=== PATIENT | female | born 1955 | race Caucasian/White ===

== ENCOUNTER 2022-02-08 07:05 | Outpatient (CLI) | payer BC, SELFPAY | END 2022-02-08 07:06 | disposition home or self-care (01) | PROVIDERS: PCP Family Medicine; Visit Provider Internal Medicine | DX: Z12.11 Encounter for screening for malignant neoplasm of colon (principal) | CPT/HCPCS: 45378; 99153; J2250; J3010 ==

== ENCOUNTER 2022-04-16 13:21 | Outpatient (CLI) | payer BC, SELFPAY ==
--- NOTE | 2022-04-16 13:20 | CRLHL7_ITS ---
For Patients: As a result of the Cures Act, medical imaging exams and procedure reports are released immediately into your electronic medical record. You may view this report before your referring provider. If you have questions, please contact your health care provider. BILATERAL SCREENING MAMMOGRAM WITH COMPUTER-AIDED DETECTION AND TOMOSYNTHESIS TECHNIQUE: CC and MLO views were obtained. These mammographic images have been obtained using full-field digital technique. These mammographic images were interpreted with the benefit of computer-aided detection. Breast Tomosynthesis was used in this interpretation. COMPARISON FILM: No priors available ??? [facility] over 10 years ago. FINDINGS: The breasts are heterogeneously dense, which may obscure small masses IMPRESSION: There is no radiographic evidence for malignancy. ASSESSMENT: BI-RADS Category 2: Benign RECOMMENDATION: Routine screening mammogram in 1 year. A lay language report of this examination will be provided to the patient. Hubert Spencer M.D. Diagnostic/Nuclear Medicine Radiologist [email or web address] STEFAN/Dictated by: Hubert Spencer MD @ 04/17/2022 8:30:00 AM (Electronically Signed)
== END 2022-04-16 13:22 | disposition home or self-care (01) ==
PROVIDERS: PCP Family Medicine; Visit Provider Internal Medicine
DX: Z12.31 Encounter for screening mammogram for malignant neoplasm of breast (principal); R92.2 Inconclusive mammogram
CPT/HCPCS: 77063; 77067

== ENCOUNTER 2024-02-02 03:12 | Emergency (ER) | payer BC, SELFPAY ==
[2024-02-02 03:31] VITALS: BP 145/82; PULSE 73; RESP 16; TEMP 36.4; O2SAT 99; BMI 27.4
--- NOTE | 2024-02-02 03:36 | CRLHL7_ITS ---
For Patients: As a result of the Century Cures Act, medical imaging exams and procedure reports are released immediately into your electronic medical record. You may view this report before your referring provider. If you have questions, please contact your health care provider. INDICATION: : Fall on the outstretched hand, injury TECHNIQUE: Three views left wrist COMPARISON: None FINDINGS: Comminuted intra-articular left distal radial fracture. The articular surface gap is 0.6 cm. Dorsal dislocation of the central dorsal portion of the radius. Normal radioulnar and radiocarpal alignment. Relatively mild osteoarthritis. No focally destructive bone lesions. Soft tissue swelling around the wrist. IMPRESSION: Comminuted intra-articular left distal radial fracture. Dictated by Ana Ramirez MD @ 02/02/2024 4:02:21 AM (Electronically Signed)
[2024-02-02 05:57] VITALS: BP 135/68; PULSE 68; RESP 16; O2SAT 97
[2024-02-02 06:26] VITALS: BP 135/68; PULSE 68
--- NOTE | 2024-02-02 06:51 | ED_ITS ---
HPI - General Adult General Date Seen: 02/02/24 Chief complaint: Extremity Pain/Injury, Upper Stated complaint: left wrist injury from fall Time Seen by Provider: 02/02/24 04:42 Source: patient Mode of arrival: ambulatory Limitations: no limitations History of Present Illness HPI narrative: Patient is a 68-year-old woman who tripped and fell a couple of hours prior to presentation. She is left-handed, she landed on outstretched left hand and complains of pain in the wrist. She does not have any numbness or loss of function. Denies hitting her head, no neck or back pain, denies other injuries. She is not anticoagulated. Related Data Home Medications ?Medication ?Instructions ?Recorded ?Confirmed No Known Home Medications 09/19/23 09/19/23 Allergies Allergy/AdvReac Type Severity Reaction Status Date / Time No Known Drug Allergies Allergy Verified 09/19/23 15:17 Review of Systems Status of ROS: Reports: 10 or more systems reviewed and unremarkable except as noted in History and below PFSH PFS Surgical History History of wrist fracture ?Z87.81 - Personal history of (healed) traumatic fracture (ICD-10) Social History Smoking Status: Never smoker Do you use any of these nicotine containing products: None How often do you have a drink containing alcohol: never AUDIT-C Alcohol total score: 0 Non-prescribed substance use: denies use Exam Narrative: Exam Narrative: Vital signs reviewed In general, alert, well-appearing woman. Extremities: Examination of the left upper extremity shows swelling and tenderness of the wrist, no tenderness of the elbow or forearm otherwise. Distal CMS is intact. Skin: Warm and dry, intact over the injured area. Const: Vital Signs, click to edit/add: Vital Signs - 24 hr 02/02/24 03:31 02/02/24 05:57 02/02/24 06:26 Temperature 97.6 F Pulse Rate [Pulse Oximeter] 73 68 68 Respiratory Rate 16 16 Blood Pressure [Ri ght Upper Arm] 145/82 H 135/68 135/68 Pulse Oximetry 99 97 Oxygen Delivery Me thod Room Air Room Air Documenting provider has reviewed patient's vital signs: yes Course Course ED Course: X-rays of the left wrist by my review show a comminuted and impacted fracture, radiology read as follows:FINDINGS: Comminuted intra-articular left distal radial fracture. The articular surface g ap is 0.6 cm. Dorsal dislocation of the central dorsal portion of the radius. Normal radioulnar and radiocarpal alignment. Relatively mild osteoarthritis. No focally destructive bone lesions. Soft tissue swelling around the wrist. IMPRESSION: Comminuted intra-articular left distal radial fracture. In looking at the x-rays, she does not have significant angulation at the fracture site although she does have some displacement of the dorsal radial fragment. I was not confident that I would be able to significantly improve this with reduction, and therefore I a did not perform sedation to reduce this. I did do a hematoma block using 5 mL of lidocaine, placed her in finger traps with weight to distract the fragments a little bit and try to bring this out to better length. I do think this will be a surgical fracture, I have reviewed this with her, she will need to see orthopedics and we made her an appointment in the next couple of days. I placed a sugar-tong splint using Ortho Glass and Mukul wraps. She tolerated this well, is comfortable, does not feel she will need anything than ibuprofen for pain. Vital Signs Vital signs: Initial Vital Signs Temperature 97.6 F 02/02/24 03:31 Temperature Source Temporal Artery Scan 02/02/24 03:31 Pulse Rate 73 02/02/24 03:31 Respiratory Rate 16 02/02/24 03:31 Blood Pressure 145/82 H 02/02/24 03:31 Blood Pressure Mean 103 02/02/24 03:31 Blood Pressure Position Sitting 02/02/24 03:31 Pulse Oximetry 99 02/02/24 03:31 Oxygen Delivery Method Room Air 02/02/24 03:31 Vital Signs Temperature 97.6 F 02/02/24 03:31 Pulse Rate 73 02/02/24 03:31 Respiratory Rate 16 02/02/24 03:31 Blood Pressure 145/82 H 02/02/24 03:31 Pulse Oximetry 99 02/02/24 03:31 Oxygen Delivery Method Room Air 02/02/24 03:31 Temperature 97.6 F 02/02/24 03:31 Pulse Rate 68 02/02/24 06:26 Respiratory Rate 16 02/02/24 05:57 Blood Pressure 135/68 02/02/24 06:26 Pulse Oximetry 97 02/02/24 05:57 Oxygen Delivery Method Room Air 02/02/24 05:57 Discharge Plan Discharge Clinical Impression: Fracture of left wrist Patient Disposition: Home, Self-Care Condition: Improved Instructions: Wrist Fracture in Adults (ED) Additional Instructions: Orthopedic follow-up as scheduled. Sling and splint until follow-up. Ibuprofen and/or Tylenol as needed for pain. Prescriptions: No Action No Known Home Medications Follow Up/Referrals: Coleman Gomez MD [Primary Care Provider] - Stand Alone Forms: [employer] Info Instructions
== END 2024-02-02 07:26 | disposition home or self-care (01) ==
PROVIDERS: Emergency Provider Emergency Medicine; PCP Family Medicine
DX: S52.572A Other intraarticular fracture of lower end of left radius, initial encounter for closed fracture (principal); W01.0XXA Fall on same level from slipping, tripping and stumbling without subsequent striking against object, initial encounter
CPT/HCPCS: 73110; 99283; 99284

== ENCOUNTER 2024-02-11 08:02 | Day surgery (SDC) | payer MEDICARE, SELFPAY ==
[2024-02-11] VITALS (11 sets, daily range): BP systolic 91–156; BP diastolic 40–77; PULSE 47–66; RESP 14–16; TEMP 36.2; O2SAT 93–99; BMI 26.9
--- OUTSIDE RECORDS SUMMARY | 2024-02-11 08:04 | XMS_ITS | Encounter Summary ---
Author Organization [facility] Address [address], [place] [address] Care Team Providers Care Extractor Plant Operator Name Role Phone Toni Natarajan MD Primary Care Provider [phone]- [phone] Encounter Details Date Type Department Care Team (Late Contact Info) Description 04/02/2013 Correspondence None No Primary/Referring, Phy ZOSTER VACCINE PAW Social History Tobacco Use Types Packs/Day Years Used Date Smoking Tobacco: Never Smokeless Tobacco: Never Alcohol Use Standard Drinks/Week Comments Yes 2.5 (1 standard drink = 0.6 oz p ure alcohol) wine a few times a week Sex and Gender Information Value Date Recorded Sex Assigned at Not on file Gender Identity Not on file Sexual Orientation Not on file documented as of this encounter Progress Notes * No Primary/Referring, Phy - 04/02/2013 12:00 AM CDT ATION AGENT documented in this encounter Plan of Treatment Upcoming Encounters Date Type Department Care Team (Late Contact Info) Description 02/17/2024 3:50 PM CDT Appointment [facility] [place] [address] [place] [address] Kezia, Joan Doss, [facility] [address] [place] [address] documented as of this encounter Visit Diagnoses Not on filedocumented in this encounter Care Teams Extractor Plant Operator Relationship Specialty Start Date End Date Toni Natarajan MD [address] [place] [address] PCP - General 01/30/10 documented as of this encounter
--- OUTSIDE RECORDS SUMMARY | 2024-02-11 08:04 | XMS_ITS | Encounter Summary ---
Author Organization [facility] Address [address] [place] [address] Care Team Providers Care Repairer Shoe Sticks Name Role Phone Toni Natarajan MD Primary Care Provider +1- [phone] Reason for Visit * Reason Comments RELEASE OF RECORDS Encounter Details Date Type Department Care Team (Late Contact Info) Description 11/05/2023 Telephone [facility] [address] [place] [address] Unassigned, Provider [address] [place] [address] RELEASE OF RECORDS Social History Tobacco Use Types Packs/Day Years [...] on file documented as of this encounter Nursing Notes * Ana Cloud - 11/05/2023 3:26 PM CDT JOAO emailed in by [facility] on behalf of patient to release dental x-rays. X-rays sent via email on 11/05/23. documented in this encounter Plan of Treatment Upcoming Encounters Date Type Department Care Team (Late Contact Info) Description 02/17/2024 3:50 PM CDT Appointment [facility] [place] [address] [place] [address] Kezia, Joan Doss, [facility] [address] [place] [address] documented as of this encounter Visit Diagnoses Not on filedocumented in this encounter Care Teams Repairer Shoe Sticks Relationship Specialty Start Date End Date Toni Natarajan MD [address] [place] [address] PCP - General 01/30/10 documented as of this encounter
--- OUTSIDE RECORDS SUMMARY | 2024-02-11 08:04 | XMS_ITS | Encounter Summary ---
Author Organization [facility] Address [address], [place] [address] Care Team Providers Care Auto Repair Shop Manager Name Role Phone Toni Natarajan MD Primary Care Provider +1- [phone] Encounter Details Date Type Department Care Team (Latest Contact Info) Description 03/17/1997 Orders Only Dunia Greenberg MD Social History Tobacco Use Types Packs/Day Years Used Date Smoking Tobacco: Never Assessed Sex and Gender Information Value Date Recorded Sex Assigned at Not on file Gender Identity Not on file Sexual Orientation Not on file documented as of this encounter Plan of Treatment Upcoming Encounters Date Type Department Care Team (Late st Contact Info) Description 02/17/2024 3:50 PM CDT Appointment [facility] [place] [address] [place] [address] Kezia, Joan Doss, [facility] [address] [place] [address] documented as of this encounter Visit Diagnoses Not on filedocumented in this encounter Care Teams Auto Repair Shop Manager Relationship Specialty Start Date End Date Toni Natarajan MD [address] [place] [address] PCP - General 01/30/10 documented as of this encounter
--- OUTSIDE RECORDS SUMMARY | 2024-02-11 08:04 | XMS_ITS | Encounter Summary ---
Author Organization [facility] Address [address], [place] [address] Care Team Providers Care Safety Engineer Name Role Phone Toni Natarajan MD Primary Care Provider +1- [phone] Encounter Details Date Type Department Care Team (Late Contact Info) Description 05/19/2013 Consent for Procedure/Treatme [facility] Department INFORMED CONSENT RECORD Social History Tobacco Use Types Packs/Day Years [...] as of this encounter Progress Notes * [facility], PROVIDER - 05/19/2013 12:00 AM CST K LOADER AND UNLOADER documented in this encounter Plan of Treatment Upcoming Encounters Date Type Department Care Team (Late Contact Info) Description 02/17/2024 3:50 PM CDT Appointment [facility] [place] [address] [place] [address] Joan Mast, [facility] [address] [place] [address] documented as of this encounter Visit Diagnoses Not on filedocumented in this encounter Care Teams Safety Engineer Relationship Specialty Start Date End Date Toni Natarajan MD [address] [place] [address] PCP - General 01/30/10 documented as of this encounter
--- OUTSIDE RECORDS SUMMARY | 2024-02-11 08:04 | XMS_ITS | Clinical Summary ---
Author Organization [facility] Address [address], [place] [address] Care Team Providers Care Gas Well Drilling Manager Name Role Phone Toni Natarajan MD Primary Care Provider [phone]- [phone] Source Comments You are receiving this document as you are listed as the primary care provider,follow-up provider, or the patient has been referred to you for consultation.This is in compliance with the Medicare and[facility] EHR Incentive Program,which states Providers who transition their patient to another setting of careor provider of care or refers their patient to another provider of care shouldprovide summary care record for each transition of care or referral. [employer] Allergies No known active allergies Medications Medication Sig Dispensed Refills Start Date End Date Status Lactase 250 MGIndications:Lacto se intolerance Take 250 mg by mouth three times a day with meals. 60 Cap 11 04/02/2013 Active acetaminophen (TYLENOL) 500 MG tablet Take 1 Tab by mouth every 4 hours as needed for Pain (Mild Pain). Maximum acetaminophen dose is 4000 mg in 24 hours 100 Tab 11 07/23/2017 Active Additional Information Patient not taking.Reported on 10/14/2017 ibuprofen (MOTRIN) 200 MG tablet Take 2 Tabs by mouth every 6 hours as needed for Pain (Mild Pain). This may be safely mixed with the prescription pain medications (oxycodone, hydrocodone or tramadol.)?? This may also be safely mixed with acetaminophen. 100 Tab 07/23/2017 Active Additional Information Patient not taking.Reported on 11/19/2022 oxyCODONE (ROXICODONE) 5 MG immediate release tablet Take 1-2 Tabs by mouth every 4 hours as needed for Pain (Severe Pain). 20 Tab 07/23/2017 Active Additional Information Patient not taking.Reported on 10/14/2017 Ascorbic Acid (VITAMIN C OR) Active VITAMIN B COMPLEX-C OR Active CALCIUM-VITAMIN D OR Active Active Problems No known active problems Immunizations Name Administration Dates Next Due Flu Vac (3+ yrs) 04/24/2011,04/24/2005 HepA, Unspecified Formulation 08/15/1998 HepB Adult (Engerix-B, 20+ y rs, 3 dose series) 07/04/1999,12/28/1998,11/27/1998 Influenza IIV4 (Quadrivalent ) 0.5mL (82594) 04/02/2013 Td 03/16/1997,02/06/1974 Tdap 09/08/2008 Varicella 07/10/1999(Deferred: Immune by Bonilla myrick) Zoster (Zostavax) 04/02/2013 Family History Medical History Relation Name Comments Cataract Father Cancer, Breast Mother Cataract Mother Emphysema Mother Macular Degeneration Mother Cerebrovascular Disease Maternal Grandmother cva and thyroid problems Cerebrovascular Disease Other mat aunt 60 Macular Degeneration Paternal Aunt Cataract Sister Glaucoma Negative Family History Relation Name Status Comments Father (Age 84) MVA pedest stephan Mother (Age 78) Maternal Grandmother Other Paternal Aunt Sister Social History Tobacco Use Types Packs/Day Years Used Date Smoking Tobacco: Never Smokeless Tobacco: Never Alcohol Use Standard Drinks/Week Comments Yes 2.5 (1 standard drink = 0.6 oz p ure alcohol) wine a few times a week Sex and Gender Information Value Date Recorded Sex Assigned at Not on file Gender Identity Not on file Sexual Orientation Not on file Last Filed Vital Signs Vital Sign Reading Time Taken Comments Blood Pressure 127/76 08/28/2018 11:53 AM CDT Pulse 74 07/08/2023 11:07 AM ROCK LATHER Temperature 36.1 ??C (97 ??F) 07/23/2017 11:30 AM ROCK LATHER Respiratory Rate 20 07/23/2017 11:45 AM ROCK LATHER Oxygen Saturation 99% 07/23/2017 11:45 AM ROCK LATHER Inhaled Oxygen Concentration - - Weight 75.3 kg (166 lb) 09/23/2017 3:07 PM CDT Height 167.6 cm (5' 6) 09/23/2017 3:07 PM CDT Body Mass Index 26.79 09/23/2017 3:07 PM CDT Plan of Treatment Upcoming Encounters Date Type Department Care Team (Late st Contact Info) Description 02/17/2024 3:50 PM CDT Appointment [facility] [place] [address] [place] [address] Kezia, Joan Doss, [facility] [address] [place] [address] Health Maintenance Due Date Last Done Comments Hep C Screening (Preventive Services) 1955 MTM Covered 1955 HepA (2 of 2 - Risk 2-dose series) 02/15/1999 08/15/1998 Adult Preventive Visit 04/24/2012 1, 09/08/2008, 05/08/2005, Additional history exists Zoster/Shingles (2 of 3) 05/28/2013 04/02/2013 Mammogram 04/02/2014 04/02/2013, 04/09, 03/24/2011 (Completed), Additional history exists Cholesterol 04/06/2018 04/06/2013, 04/09, 05/10/2005, Additional history exists DTaP/Tdap/Td (3 - Tdap) 09/08/2018 09/09/19 09, 03/16/1997, 02/06/1974 Colonoscopy 05/19/2020 05/19/2013, 06/09, 06/26/2006 (Historical Completion) Pneumococcal 65+ Yrs (1 - PCV) 02/11/2021 COVID-19 Vaccine (2 - season) 2024 09/18/2020 Influenza (#1) 2024 04/30/2016, 03/10, 04/24/2011, Additional history exists HepB Completed 07/04/1999, 12/08, 11/27/1998 Dexa Completed 09/23/2017 Hib Aged Out No longer eligi ble based on patient's age to complete this topic IPV (Polio) Aged Out No longer eligi ble based on patient's age to complete this topic MCV4 Aged Out No longer eligi ble based on patient's age to complete this topic Medical Devices Implanted Type Area Applications Support Lead Device Identifier Shelf Expiration Date Model / Serial / Lot Plt Dvr Anatomic Narw Shtrt - [id number] Implanted:Qty: 1 on 07/23/2017 by Pablo Siegel MD at [facility] Right: [employer] - Trauma [id number] / 0 / 0 Scr Rafael 3.5x12 [id number] - [id number] Implanted:Qty: 1 on 07/23/2017 by Pablo Siegel MD at [facility] Right: [employer] - Trauma [id number] / 0 / 0 Scr Rafael 3.5x12 [id number] - [id number] Implanted:Qty: 1 on 07/23/2017 by Pablo Siegel MD at [facility] Right: [employer] - Trauma [id number] / 0 / 0 Peg Smooth 2.0x20 - [id number] Implanted:Qty: 1 on 07/23/2017 by Pablo Siegel MD at [facility] Right: [employer] - Trauma [id number] / 0 / 0 Peg Smooth 2.0x18 - [id number] Implanted:Qty: 1 on 07/23/2017 by Pablo Siegel MD at [facility] Right: [employer] - Trauma [id number] / 0 / 0 Peg Smooth 2.0x20 - [id number] Implanted:Qty: 1 on 07/23/2017 by Pablo Siegel MD at [facility] [employer] Right: [employer] - Trauma [id number] / 0 / 0 Peg Smooth 2.0x20 - [id number] Implanted:Qty: 1 on 07/23/2017 by Pablo Siegel MD at [facility] Right: [employer] - Trauma [id number] / 0 / 0 Peg Smooth 2.0x18 - [id number] Implanted:Qty: 1 on 07/23/2017 by Pablo Siegel MD at [facility] Right: [employer] - Trauma [id number] / 0 / 0 Peg Smooth 2.0x20 - [id number] Implanted:Qty: 1 on 07/23/2017 by Pablo Siegel MD at [facility] Right: [employer] - Trauma [id number] / 0 / 0 Scr Rafael 3.5x12 [id number] - [id number] Implanted:Qty: 1 on 07/23/2017 by Pablo Siegel MD at [facility] [employer] Right: [employer] - Trauma [id number] / 0 / 0 Procedures Procedure Name Priority Date/Time Associated Diagnosis Comments DXA BONE DENSITY SPINE/HIP Routine 09/23/2017 2:52 PM CDT Status post musculoskeletal system surgery Postop check COLONOSCOPY Routine 05/19/2013 11:21 AM ROCK LATHER Screen for colon cancer LIPID PANEL & DIRECT LDL (IF NEEDED) Routine 04/06/2013 8:15 AM CDT Preventative health care MM MAMMOGRAM SCREENING BILAT W CAD Routine 04/02/2013 11:02 AM CDT from Last 3 Months or Most Recently Relevant to Health Maintenance Results * DEXA Bone Density Spine/Hip (09/23/2017 2:52 PM CDT) Anatomical Region Laterality Modality Lower Extremity, Spine, Hip, L-Spine Other Narrative 09/25/2017 9:59 PM CDT CLINIC DXA REPORT Patient Name: ??Amelia Irwin Lincoln: ??Ksenia Foster MD Densitometer: ??Hologic Discovery A (S/N [id number]) [facility] BONE5 OSTEOPOROSIS RISK FACTORS FROM PATIENT QUESTIONNAIRE: ?? The patient is a 62 y.o.female: Estrogen deficiency since menopause about 16 years ago, possibly inadequate vitamin D intake, and a fractured wrist at age 62. BONE MINERAL DENSITY: Lumbar Spine Vertebrae Included: L1;L2;L3;L4 Bone Mineral Density (gm/cm2): 0.828 T-Score: -2 Z-Score: -0.5 Total Hip Bone Mineral Density (gm/cm2): 0.796 (left hip) T-Score: -1.2 Z-Score: -0.2 Femoral Neck Bone Mineral Density (gm/cm2): 0.706 T-Score: -1.3 Z-Score: 0.1 FRAX 10 year probability major osteoporotic fracture: 13% 10 year probability hip fracture: 1.1% Fracture risk is based on bone density, age, ethnicity, and other BMD-independent risk factors noted from the questionnaire and the FRAX score, if available. ??See different fracture risk categories below under definitions. ASSESSMENT: Moderate low bone density based on lowest T score which is at the lumbar spine. ??Fragility fracture risk is mildly increased. . RECOMMENDATIONS: 1. ??Optimize daily intake of calcium and vitamin D. 2. ??Consider repeating a bone density in 3 years Definitions (T-Score = Standard deviations above/below mean peak adult) (Z-Score = Standard deviations above/below mean age/sex-matched peers) ISCD Standards: ??For a more accurate fracture risk assessment, reference data is used for all ethnic groups and the 1/3 region is reported for the forearm. WHO DEFINITIONS: Normal BMD: T-score ? -1.0 Osteopenia: T-score between -1.0 and -2.5 Osteoporosis: T-score ? -2.5 FRAX Score : ??The FRAX?? algorithms give the 10-year probability of fracture. The output is a 10-year probability of hip fracture and the 10-year probability of a major osteoporotic fracture (clinical spine, forearm, hip or shoulder fracture). ?? The FRAX score takes into account the bone density, but also age, gender, weight, height, previous fracture, parental hip fracture, smoking status, glucocorticoid intake, history of RA, secondary osteoporosis, and high alcohol intake in determining fracture risk in patients with osteopenia and osteoporosis. FRAX and Fracture Risk Categories in terms of major osteoporotic fracture risk (clinical spine, forearm, hip, or shoulder): < 10% ?= ?low fracture risk ? 10% and <15% ?= ?mildly increased fracture risk ? 15% and <20% ?= ?moderately increased fracture risk ? 20% and <30% ?= ?high fracture risk ? 30% ?= ?very high fracture risk A clinician may consider FDA-approved medical therapies in postmenopausal women and men aged 50 years and older, if one or more of the following is present (clinical correlation required and therapy may not always be indicated): 1. ??The patient has a hip or vertebral (clinical or morphometric) fracture. 2. ??T-score ? -2.5 at the femoral neck, hip, or spine after appropriate evaluation to exclude secondary causes. 3. ??Low bone mass (T-score between -1.0 and -2.5 at the femoral neck, hip or spine) and a 10-year probability of a hip fracture ? 3% or a 10-year probability of a major osteoporosis-related fracture ? 20% based on the FRAX scores. 4. ??Clinicians judgment and/or patient preferences may result in a decision to patients with 10-year fracture probabilities above or below these levels. Pablo Siegel MD RAD DEXA * COLONOSCOPY [[id number]] (05/19/2013 11:21 AM ROCK LATHER) 05/19/2013 11:2 1 AM ROCK [facility]ER Narrative GI ([facility]) - 05/19/2013 12:25 PM ROCK LATHER Indications: ? Screening for colorectal malignant neoplasm Providers: ? Janusz Cortes MD, Cady Landeros RN Referring MD: ?Umu Neal MD Medicines: ? Fentanyl IV 100 mcgs, Versed/Midazolam IV 4 mgs Complications: ? No immediate complications. Procedure: ? Pre-Anesthesia Assessment: ? - Prior to the procedure, a History and Physical was ? performed, and patient medications and allergies were ? reviewed. The risks and benefits of the procedure and ? the sedation options and risks were discussed with ? the patient. All questions were answered and informed ? consent was obtained. Patient identification and ? proposed procedure were verified by the physician and ? the nurse in the pre-procedure area in the procedure ? room in the endoscopy suite. Mental Status ? Examination: alert and oriented. Airway Examination: ? normal oropharyngeal airway and neck mobility. ? Respiratory Examination: clear to auscultation. CV ? Examination: regular rate and rhythm. Prophylactic ? Antibiotics: The patient does not require ? prophylactic antibiotics. Prior Anticoagulants: The ? patient has taken no previous anticoagulant or ? antiplatelet agents. ASA Grade Assessment: I - A ? normal, healthy patient. After reviewing the risks ? and benefits, the patient was deemed in satisfactory ? condition to undergo the procedure. The anesthesia ? plan was to use moderate sedation / analgesia ? (conscious sedation). Immediately prior to ? administration of medications, the patient was ? re-assessed for adequacy to receive sedatives. The ? physical status of the patient was re-assessed after ? the procedure. ? After I obtained informed consent, the scope was ? passed under direct vision. Prior to sedation, ? patient identity and procedure was reverified. ? Throughout the procedure, the patient's blood ? pressure, pulse, and oxygen saturations were ? monitored continuously. The Colonoscope was ? introduced through the anus and advanced to the ? cecum, identified by appendiceal orifice & ileocecal ? valve. The colonoscopy was technically difficult and ? complex due to significant looping and a tortuous ? colon. Successful completion of the procedure was ? aided by increasing the dose of sedation medication, ? changing the patient to a prone position and using ? manual pressure. The patient tolerated the procedure ? well. The quality of the bowel preparation was fair. Findings: ? A sessile polyp was found in the rectum. The polyp was 4 mm in size. ? The polyp was removed with a cold biopsy forceps. Resection and ? retrieval were complete. ? Internal hemorrhoids were found during retroflexion and were mild. Impression: ?- One 4 mm polyp in the rectum. Resected and ? retrieved. ? - Internal hemorrhoids. Recommendation: ?- Await pathology results. ? - If the pathology report reveals adenomatous tissue, ? then repeat the colonoscopy for surveillance in 5 ? years. Otherwise in 7 years. ? - Return to primary care physician. ? - Prep with 2 days of clear liquid diet & golytely ? (split prep) for the next colonoscopy. Procedure Code(s): ?? --- Professional --- ? 24854, Colonoscopy, flexible, proximal to splenic ? flexure; with biopsy, single or multiple Diagnosis Code(s): ?? --- Professional --- ? V76.51, Special screening for malignant neoplasms of ? colon ? 569.0, Anal and rectal polyp ? 455.0, Internal hemorrhoids without mention of ? complication CPT (R) 2012 [employer]. All Rights Reserved. The codes documented in this report are preliminary and upon insurance coder review may be revised to meet current compliance requirements. Attending Participation: Janusz Cortes MD 05/19/2013 12:24 PM This report has been signed electronically. Number of Addenda: 0 Note Initiated On: 05/19/2013 11:21 AM Procedure Note Janusz Cortes MD - 05/19/2013 Indications: Screening for colorectal malignant neoplasm Providers: Janusz Cortes MD, Cady Landeros RN Referring MD: Umu Neal MD Medicines: Fentanyl IV 100 mcgs, Versed/Midazolam IV 4 mgs Complications: No immediate complications. Procedure: Pre-Anesthesia Assessment: - Prior to the procedure, a History and Physical was performed, and patient medications and allergies were reviewed. The risks and benefits of the procedure and the sedation options and risks were discussed with the patient. All questions were answered and informed consent was obtained. Patient identification and proposed procedure were verified by the physician and the nurse in the pre-procedure area in the procedure room in the endoscopy suite. Mental Status Examination: alert and oriented. Airway Examination: normal oropharyngeal airway and neck mobility. Respiratory Examination: clear to auscultation. CV Examination: regular rate and rhythm. Prophylactic Antibiotics: The patient does not require prophylactic antibiotics. Prior Anticoagulants: The patient has taken no previous anticoagulant or antiplatelet agents. ASA Grade Assessment: I - A normal, healthy patient. After reviewing the risks and benefits, the patient was deemed in satisfactory condition to undergo the procedure. The anesthesia plan was to use moderate sedation / analgesia (conscious sedation). Immediately prior to administration of medications, the patient was re-assessed for adequacy to receive sedatives. The physical status of the patient was re-assessed after the procedure. After I obtained informed consent, the scope was passed under direct vision. Prior to sedation, patient identity and procedure was reverified. Throughout the procedure, the patient's blood pressure, pulse, and oxygen saturations were monitored continuously. The Colonoscope was introduced through the anus and advanced to the cecum, identified by appendiceal orifice & ileocecal valve. The colonoscopy was technically difficult and complex due to significant looping and a tortuous colon. Successful completion of the procedure was aided by increasing the dose of sedation medication, changing the patient to a prone position and using manual pressure. The patient tolerated the procedure well. The quality of the bowel preparation wasfair. Findings: A sessile polyp was found in the rectum. The polyp was 4 mm in size. The polyp was removed with a cold biopsy forceps. Resection and retrieval were complete. Internal hemorrhoids were found during retroflexion and were mild. Impression: - One 4 mm polyp in the rectum. Resected and retrieved. - Internal hemorrhoids. Recommendation: - Await pathology results. - If the pathology report reveals adenomatous tissue, then repeat the colonoscopy for surveillance in 5 years. Otherwise in 7 years. - Return to primary care physician. - Prep with 2 days of clear liquid diet & golytely (split prep) for the next colonoscopy. Procedure Code(s): --- Professional --- 21343, Colonoscopy, flexible, proximal to splenic flexure; with biopsy, single or multiple Diagnosis Code(s): --- Professional --- V76.51, Special screening for malignant neoplasms of colon 569.0, Anal and rectal polyp 455.0, Internal hemorrhoids without mention of complication CPT (R) 2012 [employer]. All Rights Reserved. The codes documented in this report are preliminary and upon insurance coder review may be revised to meet current compliance requirements. Attending Participation: Janusz Cortes MD 05/19/2013 12:24 PM This report has been signed electronically. Number of Addenda: 0 Note Initiated On: 05/19/2013 11:21 AM Janusz Cortes MD [facility] [place], [place] * LIPID PANEL AND DIRECT LDL(IF NEEDED) (04/06/2013 8:15 AM CDT) Hours Fasting 12 hours [facility] Cholesterol 194 0 - 199 mg/dl [facility] Triglyceride 63 0 - 149 mg/dl [facility] HDL 57 >40 mg/dl [facility] LDL, Calc. 124 0 - 129 mg/dl [facility] Non HDL Chol, Calc 137 mg/dl [facility] 04/06/2013 8:15 AM CDT 04/06/2013 8:22 AM CDT Narrative [facility] - 04/06/2013 1:03 PM CDT Performed at [facility], [address] [place] [address] ??[id number] Umu Neal MD LAB_1 [facility] [phone] * MAMMOGRAM SCREENING BILATERAL (04/02/2013 11:02 AM CDT) Anatomical Region Laterality Modality Breast Bilateral Mammography Narrative 04/05/2013 2:16 PM CDT BILATERAL FULL FIELD DIGITAL SCREENING MAMMOGRAM Performed on 04/02/2013 Comparison: MAMMOGRAM SCREENING W/CAD BILAT 04/24/11 and MAMMOGRAM SCREENING W/CAD BILAT 02/08/10. Findings: The breasts have scattered fibroglandular densities. There is no radiographic evidence of malignancy.This study was evaluated with the assistance of Computer-Aided Detection. ??Repeat routine screening mammogram in one year is recommended. ACR BI-RADS Category 1: Negative Procedure Note Esme Sosa MD - 04/05/2013 BILATERAL FULL FIELD DIGITAL SCREENING MAMMOGRAM Performed on 04/02/2013 Comparison: MAMMOGRAM SCREENING W/CAD BILAT 04/24/11 and MAMMOGRAMSCREENING W/CAD BILAT 02/08/10. Findings: The breasts have scattered fibroglandular densities. There is noradiographic evidence of malignancy.This study was evaluated with theassistance of Computer-Aided Detection. Repeat routine screeningmammogram in one year is recommended. ACR BI-RADS Category 1: Negative Toni Natarajan MD [facility] from Last 3 Months or Most Recently Relevant to Health Maintenance Care Teams Gas Well Drilling Manager Relationship Specialty Start Date End Date Toni Natarajan MD [address] [place], [place] [address]BAYRON ANGUIANO [address] PCP - General 01/30/10
--- OUTSIDE RECORDS SUMMARY | 2024-02-11 08:04 | XMS_ITS | Encounter Summary ---
Author Organization [facility] Address [address], [place] [address] Care Team Providers Care Industrial/Organizational Psychologist Name Role Phone Toni Natarajan MD Primary Care Provider [phone]- [phone] Encounter Details Date Type Department Care Team (Latest Contact Info) Description 03/16/1997 Orders Only Dunia Greenberg MD Social History [...] Info) Description 02/17/2024 3:[address] [facility] [place] [address] [place] [address] Kezia, Joan Doss, [facility] [address] [place] [address] documented as of this encounter Visit Diagnoses Not on filedocumented in this encounter Care Teams Industrial/Organizational Psychologist Relationship Specialty Start Date End Date Toni Natarajan MD [address] [place] [address] PCP - General 01/30/10 documented as of this encounter
[2024-02-11] MEDS: SODIUM CHLORIDE 0.9 % (FLUSH) 10 ML SYRINGE IVF (09:08)
[2024-02-11] MEDS: LACTATED RINGERS 1000 ML 1,000 ML 100 ML IV (09:08)
--- NOTE | 2024-02-11 09:12 | SUR.PREOP ---
TIME?OUT:?911 PT/RN/MDA?VERIFICATION?OF?SURGICAL?SITE,?PROCEDURE,?AND?CONSENT OBTAINED?PRIOR?TO?INVASIVE?PROCEDURE.
[2024-02-11] MEDS: fentaNYL 100 MCG/2 ML inj IVP (09:14)
[2024-02-11] MEDS: MIDAZOLAM HCL 1 MG/ML inj IVP (09:15)
--- NOTE | 2024-02-11 09:30 | CRLHL7_ITS ---
For Patients: As a result of the Cures Act, medical imaging exams and procedure reports are released immediately into your electronic medical record. You may view this report before your referring provider. If you have questions, please contact your health care provider. Indication: ORIF distal Radius Technique: Three fluoroscopic images of the left wrist. Fluoroscopic time 25.9 seconds. IMPRESSION: Fluoroscopic guidance for open reduction internal fixation of distal radial fracture. Dictated by Jaylen Edmonds MD @ 02/11/2024 11:48:02 AM (Electronically Signed)
--- NOTE | 2024-02-11 09:40 | P.NB_ITS ---
Nerve Block Nerve Block Time Seen by Provider: 09:15 Date Seen: 02/11/24 Type of block requested by surgeon for post-operative analgesia: axillary Side: left Time out performed: Yes Verification of patient name: Yes Verification of date of : Yes Site marking: site marked Name of person performing procedure: Johnny Storey Continuous monitoring Was continuous monitoring of O2 sat, B/P, traffic monitor specialist, recorded every 15 minutes?: Yes Procedure Checklist: sterile prep, needles and gloves Ultrasound guided. Images saved: Yes Medications given in 5ml increments after negative aspiration: Ropivicaine %: 0.5 mL: 22 Needle gauge: 20 Decadron (mg): 10 Precedex (mcg): 25 Patient tolerated procedure well: Yes Additional comments: Injected in 5 mL increments after negative aspiration Block Charges Block Charge (with Pro Fee): Brachial Plexus Use of Ultrasound Machine for Block: Yes- US Guidance/pain block
[2024-02-11] MEDS: CEFAZOLIN 2 GM in 0.9 % SODIUM CHLORIDE Mini-bag 100 ML IVPB (09:58)
--- NOTE | 2024-02-11 11:01 | W.PM.H&PU ---
History & Physical Update History & Physical Update H&P Reviewed and patient assessed: No changes noted
--- NOTE | 2024-02-11 11:04 | P.ORPRC_ITS ---
Procedure Note Date of procedure: 02/11/24 Procedure: PREOPERATIVE DIAGNOSES: 1. Left distal radius fracture intraarticular with comminution and dorsal angulation/displacement - unstable POSTOPERATIVE DIAGNOSES: 1. Left distal radius fracture intraarticular with comminution and dorsal angulation/displacement - unstable NAME OF OPERATION: 1. Left distal radius open reduction with internal fixation of intraarticular fracture (3+ parts) SURGEON: Rachid Pastor MD LEMON GROWER: Vicente Najera - Of note, an assistant media buyer was critical for this case to aide in patient positioning, limb manipulation, tissue retraction, closure, and splinting. ANESTHESIA: Supraclavicular block EBL: 2 mL IMPLANTS: [Synthes dual column volar locking plate with 2.4mm proximal locking screw and 2.7 mm nonlocking screw. Distal locking blunt-tipped pegs TOURNIQUET: 50 minutes at 230 torr. INDICATIONS: The patient is a pleasant, 68-year-old female who sustained a left wrist injury after a fall. They had difficulty with use of the extremity and deformity. Workup included xrays which revealed an unstable fracture. Given these findings, surgery was recommended to stablize the fracture. FINDINGS: Closed, comminuted, intra-articular, displaced left distal radius fracture. PROCEDURE: Following a thorough discussion of risks, benefits, and alternatives, consent was obtained and the operative extremity was marked. The patient was brought to the operating room and placed supine on the operating table. Induction of anesthesia was achieved. Appropriate time out was performed identifying proper patient, site and procedure. 1 gram of iv Ancef was adm inistered within 1 hour of incision preoperatively. The left upper extremity was prepped and draped in the appropriate sterile fashion using ChloraPrep prep. The limb was exsanguinated and the tourniquet inflated. A longitudinal incision was made overlying the FCR tendon. Sharp incision through skin and subcutaneous tissue allowed identification of the FCR tendon. The superficial sheath was sharply divided, the tendon retracted ulnarly, and the deep fascial sheath also released. The FPL was retracted ulnarly and the pronator quadratus was sharply released from the radial border of the radius and subperiosteally elevated. The fracture was encountered and cleared of interposed periosteum / fracture hematoma. A reduction was performed and the appropriate plate selected. Temporary stabilization allowed C-arm fluoroscopy to confirm proper fracture reduction and plate positioning. The oblong hole was filled with a nonlocking screw followed by multiple distal locking pegs being careful to keep these in subchondral bone and extraarticular. Finally, the remaining proximal shaft screws were drilled and placed. Fluoroscopic imaging confirmed the improved position and showed the fracture to be stable. At this stage, the wound was thoroughly irrigated with normal saline. Closure performed with 0 Vicryl for the pronator quadratus, followed by deflation of the tourniquet. All major bleeding points were cauterized. Closure was then completed with 3-0 Vicryl for the subcutaneous, and 4-0 statafix for subcuticular closure. Dressings were applied along with a volar/dorsal splint. The patient was awoken from anesthesia and transferred to PACU in stable condition. PLAN: 1. Elevate operative extremity. 2. Ice, acetominphen or ibuprofen PRN. 3. Oxycodone for pain as needed. 4. Follow up with PA visit in 10-16 days for wound check and splint removal.
--- NOTE | 2024-02-11 11:14 | W.ANESCHARGE ---
Anesthesia Charges Start Date/Time Anesthesia Start Date: 02/11/24 Anesthesia Start Time: 09:42 Stop Date/Time Anesthesia Stop Date: 02/11/24 Anesthesia Stop Time: 11:09
== END 2024-02-11 12:55 | disposition home or self-care (01) ==
PROVIDERS: PCP Family Medicine; Visit Provider Orthopaedic Surgery Sports Medicine
PROC: (CPT 25575; principal; 2024-02-11 09:30)
DX: S52.572A Other intraarticular fracture of lower end of left radius, initial encounter for closed fracture (principal); G89.18 Other acute postprocedural pain
CPT/HCPCS: 25609; 01830; 64417; 73110; 76000; 76942; A4580; C1713; J0690; J1100; J2250; J2405; J2704; J2795; J3010; J3490; J7120

== ENCOUNTER 2024-07-29 14:45 | Outpatient (RCR) | payer MEDICARE, SELFPAY ==
--- NOTE | 2024-03-05 14:13 | OT.OPOE ---
OT Outpatient Ortho Eval OT Outpatient Ortho Eval* Start: 03/04/24 18:51 Freq: Status: Active Protocol: Document 03/05/24 11:04 AMB (Rec: 03/05/24 13:20 AMB [id number]) E-signed By Liliana Hussein, OTR/L, CLT, SURGICAL ASSISTANT OT OP Ortho Eval Details Complexity Complexity Low Insurance Information Insurance Information Medicare B Outpatient History/Precautions Current Condition/Medical Diagnosis Referring Provider Moises Gordillo PA-C Medical Diagnoses Z98.898 ORIF LUE wrist Treatment Diagnosis Stiffness left wrist M25.632 Weakness LUE R53.1 Date of Onset DOI: 02/02/24, DOS: 02/11/24 Other Conditions Pt has a history of RUE wrist fx x 2, one with ORIF, one closed. 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, since childhood H53.001 - Unspecified amblyopia, right eye (ICD-10) Adenomatous polyp of colon ( Acute) outside colonoscopy 11/19, due again 5Y D12.6 - Benign neoplasm of colon, unspecified (ICD-10) Surgical History (Updated @ 14:15 by Brooke Mahan) History of wrist fracture (~ 2017) Z87.81 - Personal history of ( healed) traumatic fracture ( ICD-10) Medical/Functional History Medical History Reviewed Yes Social History Employment Status Retired Hobbies Gardening, reading, cooking Ortho Subjective Subjective Subjective Pt states that on 02/02/24 she tripped over a suitcase at home landing on her right hand sustaining a wrist fx. Pt underwent ORIF with Dr Pastor on 02/11/24. Pt had her cast off today and was placed in a compression sleeve and removeable OTS wrist cock-up splint. Pt states her pain has been really well managed, rates it at 1/10 and sometimes 0/10. Pt is looking forward to getting a home program as she will be on vacation for the next week and will not be able to attend clinic visits. Goniometric Comments Goniometric Comments Goniometric Comments 03/05/24 AROM of BUE is WFL throughout with the exception of the LUE fingers, hand, wrist and forearm. AROM of the LUE: Wrist: Flex/Ext: 35/15 UD/RD: 8/5 Forearm: Pro/sup: 30/30 Hand: Fist: 4-cm from the tip of the MF to the DPC Opposition: Tip of MF Hand Pinch/Fur Mixer Operator Strength Comments Comments 03/05/24 Too early for strength testing. OT Objective Data Hand Hand Dominance Right Skin/Wounds/Edema Comments 03/05/24 Incisional area is covered with surgical glue, incision is closed, no redness , no s/s of infection. Sensation Sensation Assessment Summary Comments 03/05/24 Pt denies any paresthesia. OT Problems Problems Problems Decreased Strength,Decreased Range of Motion,Pain,Lifting, Gripping,Pinching Problems Comments Pt also states she is not able to drive, has to have her transport her, has difficulty with holding a book to read, cooking and cleaning are difficult. Other Problems Opening Containers Patient Potential Good Occupational Therapy Treatment Plan - OP Potential Rehabilitation Potential Good Set Goals Goals Set with Patient Yes Goals Goals 1. Pt will be independent and compliant with HEP in order to resume full, pain-free use of the involved UE. 3 weeks 2. Pt will demonstrate full, pain-free AROM of the involved UE in order to improve ability to grasp and hold. 6 weeks 3. Pt will demonstrate pain- free revenue audit clerk and pinch strength comparable to the uninvolved side in order to improve functional grasp, hold, reach, and lifting ability needed to complete self-care, leisure tasks, and work activities. 8 weeks. Target Date 06/04/24 Treatment Plan Treatment Plan Evaluation,Edema Control, Manual Therapy,Splinting,Wound Care/Scar Management, Therapeutic Exercise, Therapeutic Activities,Self Care/Home Management,Education Expected Frequency 1-2x Week Expected Duration 8-10 Weeks Home Program Home Program Home Program Initiated Home Program Specifics Pt was provided training and practice in HEP For AROM of LUE fingers/thumb, wrist and forearm. Following demo, pt is able to complete exs with minimal cues. Pt was provided with written instructions for use at home as well. Certification Certification Statement I Certify That: Therapy Services Provided, Therapy Plan Established, Therapy Plan Reviewed Certification Information Clinic ID # [id number] Initial Certification Date 03/05/24 Recertification Due Date 06/03/24 Provider Signature Required Yes Provider Signature Shows Agreement With POC & Medical Necessity Physician NPI Number Write NPI# Here Physician Comment/Change Comment or Changes Physician Signature & Date Requested Please Sign/Date Here
--- NOTE | 2024-05-26 17:26 | OT.OPODN ---
OT Outpatient Ortho Daily Note OT Outpatient Ortho Daily Note* Start: 03/04/24 18:51 Freq: Status: Active Protocol: Document 05/26/24 14:11 AMB (Rec: 05/26/24 17:25 AMB [id number]) E-signed By Liliana Hussein, OTR/L, CLT, RAMP SUPERVISOR Type of Note Type of Note Type of Note Daily Note,Recert/Progress Note Visit Number 13 Comments MC cert due 08/24/24 Insurance Information Insurance Information Medicare B Outpatient History/Precautions Current Condition/Medical Diagnosis Referring Provider Moises Gordillo PA-C Medical Diagnoses Z98.898 ORIF LUE wrist 10 weeks on 04/21/24 Treatment Diagnosis Stiffness left wrist M25.632 Weakness LUE R53.1 Date of Onset DOI: 02/02/24, DOS: 02/11/24 Other Conditions Pt has a history of RUE wrist fx x 2, one with ORIF, one closed. 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, since childhood H53.001 - Unspecified amblyopia, right eye (ICD-10) Adenomatous polyp of colon ( Acute) outside colonoscopy 11/19, due again 5Y D12.6 - Benign neoplasm of colon, unspecified (ICD-10) Surgical History (Updated @ 14:15 by Brooke Mahan) History of wrist fracture (~ 2017) Z87.81 - Personal history of ( healed) traumatic fracture ( ICD-10) Medical/Functional History Medical History Reviewed Yes Social History Employment Status Retired Hobbies Gardening, reading, cooking Ortho Subjective Subjective Subjective Pt feels she is improving, feels she is using her hand more for every day things, fingers are bending further, pain is less. OT OP Daily Ortho Note/Assessment Therapeutic Exercise Therapeutic Exercise Minutes (minutes) 20 Therapeutic Exercise Comments Provided review of stretching ex with emphasis on composite fist, wrist flex/ext, pronation and supination as well as TB strengthening exs for the wrist / forearm. Pt requires many VC and demonstration for proper posture/technique with all exs . Also completed hand strengthening with rubber band hand exs using 1 red band and 1 yellow band. Provided ordering instructions if pt chooses to purchase for home use. Upgraded diabetes trainer strenghtening to green putty. Manual Therapy Manual Therapy Minutes (minutes) 25 Manual Therapy Comments Provided MT with focus on AAROM and PROM of the LUE hand including all joints of all digits, wrist, and forearm utilizing LLPS with isolated joints, leading into composite joint motions as well. Total Occupational Therapy Time Occupational Therapy Minutes 45 Home Program Home Program Home Program Revised,Compliant Home Program Specifics 05/18/24 Provided training and practice in resisted wrist flexion, ext, and RD with yellow TB, resisted pro/sup with hammer (for stretch and strengthening), wall slides and chair leans to facilitate wrist extension stretch. Following demo, pt is able to complete exs with minimal cues and encouragement . Pt was given written instructions for use at home as well. 04/15/24 Added green sponge gripping. Increased flexion glove to 3x daily 10-15 minutes. 04/08/24 Added finger flexion glove. 03/31/24 Provided training and practice in AAROM / passive stretch to fingers with LLPS. Following demo, pt required moderate cuing to achieve proper form with stretch, needs much encouragement. Pt was instructed in isolated joint of each finger and then composite all with gentle stretch. Pt was provided with written instructions for use at home. Also upgraded putty resistance to light (teal) putty for use at home. 03/24/24 Provided training and practice in resisted diabetes trainer, tip pinch, and lateral pinch with extra light TP. Following demo pt is able to perform exs with minimal cues. Pt was provided putty and written instructions for use at home. Also added prayer stretch for wrist extension. 03/09/[address] and hold for composite fist. 03/05/24 Pt was provided training and practice in HEP For AROM of LUE fingers/thumb, wrist and forearm. Following demo, pt is able to complete exs with minimal cues. Pt was provided with written instructions for use at home as well. Pt completed 10 reps of each exercise. Goniometric Comments Goniometric Comments Goniometric Comments 05/26/24 AROM of BUE is WFL throughout with the exception of the LUE fingers, hand, wrist and forearm. AROM of the LUE: Wrist: Flex/Ext: 75/45 UD/RD: 28/30 Forearm: Pro/sup: 65/70 Hand: Fist: -1.5cm from the tip of the MF to the DPC Opposition: Tip of SF Hand Pinch/Emergency Management Director Strength Hand Pinch/Emergency Management Director Strength Hand Pinch/Emergency Management Director Strength Left Hand,Right Hand Left Hand Emergency Management Director Strength Position 1 in Elbow 10 Flexion (lbs) Lateral Pinch Strength (lbs) 6 Three Point Pinch (lbs) 6 Right Hand Emergency Management Director Strength Position 1 in Elbow 32 Flexion (lbs) Lateral Pinch Strength (lbs) 12 Three Point Pinch (lbs) 12 Comments Comments . OT Objective Data Hand Hand Dominance Right Skin/Wounds/Edema Comments 03/05/24 Incisional area is covered with surgical glue, incision is closed, no redness , no s/s of infection. OT Problems Problems Problems Decreased Strength,Decreased Range of Motion,Pain,Lifting, Gripping,Pinching Problems Comments Pt also states she is not able to drive, has to have her transport her, has difficulty with holding a book to read, cooking and cleaning are difficult. Other Problems Opening Containers Patient Potential Good Assessment Assessment Assessment Pt showing a decline in diabetes trainer and pinch strength, needs many cues for proper form with her HEP, progress is slower than typical, but steady. Occupational Therapy Treatment Plan - OP Potential Rehabilitation Potential Good Set Goals Goals Set with Patient Yes Goals Goals 1. Pt will be independent and compliant with HEP in order to resume full, pain-free use of the involved UE. 3 weeks 2. Pt will demonstrate full, pain-free AROM of the involved UE in order to improve ability to grasp and hold. 6 weeks 3. Pt will demonstrate pain- free diabetes trainer and pinch strength comparable to the uninvolved side in order to improve functional grasp, hold, reach, and lifting ability needed to complete self-care, leisure tasks, and work activities. 8 weeks. Target Date 06/04/24 Treatment Plan Treatment Plan Evaluation,Edema Control, Manual Therapy,Splinting,Wound Care/Scar Management, Therapeutic Exercise, Therapeutic Activities,Self Care/Home Management,Education Expected Frequency 1-2x Week Expected Duration 8-10 Weeks Occupational Therapy Billing Units Treatment Minutes Timed Treatment Minutes 45 Total Treatment Minutes 45 Billing Units Manual Therapy 2 Therapeutic Exercise 1 Certification Statement Certification Statement I Certify That: Therapy Services Provided, Therapy Plan Established, Therapy Plan Reviewed Recertification Information Recertification Information Initial Certification Date 03/05/24 Recertification Start Date 05/26/24 Recertification Due Date 08/24/24 Reasons to Continue Skilled Therapy Pt has been seen for a total of 13 visits since her IE on . Pt has made progress in ROM and strength, however she is still very limited in both. Pt's diabetes trainer strength in the LUE is still only 30% of the RUE and her ROM is still quite limited, especially into extension which limits her ability to use her LUE to assist with pushing up to stand or pushing a door open. Pt will benefit from continued skilled OT intervention to address ongoing deficits and retsor to PLOF. Click To Default 'Per treatment plan' Per treatment plan Continued Plan of Care and Interventions Per treatment plan Provider Signature Required Yes Provider Signature Shows Agreement With POC & Medical Necessity Physician NPI Number Write NPI# Here Physician Comment/Change Comment or Changes Physician Signature & Date Requested Please Sign/Date Here
--- OUTSIDE RECORDS SUMMARY | 2024-06-10 10:34 | XMS_ITS | Encounter Summary ---
Author Organization [facility] Address [address], [place] [address] Care Team Providers Care Qa Test Analyst Name Role Phone Toni Natarajan MD Primary Care Provider [phone]- [phone] Encounter Details Date Type Department Care Team (Late st Contact Info) Description 05/19/2013 Consent for Procedure/Treatme [facility] Department INFORMED CONSENT RECORD Social History [...] as of this encounter Progress Notes * [facility], PROVIDER - 05/19/2013 12:00 AM CST ERENCE SERVICES MANAGER documented in this encounter Plan of Treatment Not on file documented as of this encounter Visit Diagnoses Not on filedocumented in this encounter Care Teams Qa Test Analyst Relationship Specialty Start Date End Date Toni Natarajan MD [address] [place] [id number] PCP - General 01/30/10 documented as of this encounter
--- OUTSIDE RECORDS SUMMARY | 2024-06-10 10:34 | XMS_ITS | Encounter Summary ---
Author Organization [facility] Address [address], [place] [address] Care Team Providers Care Reverberatory Furnace Supervisor Name Role Phone Toni Natarajan MD Primary Care Provider [phone]- [phone] Encounter Details Date Type Department Care Team (Late st Contact Info) Description 04/02/2013 Correspondence None No [...] Primary/Referring, Phy - 04/02/2013 12:00 AM CDT REFORMING MACHINE OPERATOR documented in this encounter Plan of Treatment Not on file documented as of this encounter Visit Diagnoses Not on filedocumented in this encounter Care Teams Reverberatory Furnace Supervisor Relationship Specialty Start Date End Date Toni Natarajan MD [address] [place] [id number] PCP - General 01/30/10 documented as of this encounter
--- OUTSIDE RECORDS SUMMARY | 2024-06-10 10:34 | XMS_ITS | Clinical Summary ---
Author Organization [facility] Address [address] [address] Care Team Providers Care Veterinary Receptionist Name Role Phone Toni Natarajan MD Primary Care Provider [phone] Source Comments You are receiving this document as you are listed as the primary care provider,follow-up provider, or the patient has been referred to you for consultation.This is in compliance with the Medicare and[facility] EHR Incentive Program,which states Providers who transition their patient to another setting of careor provider of care or refers their patient to another provider of care shouldprovide summary care record for each transition of care or referral. [facility] Allerg[facility] No known active allergies Medications Medication [...] the prescription pain medications (oxycodone, hydrocodone or tramadol.) This may also be safely mixed with [...] series) 07/04/1999,12/28/1998,11/27/1998 Influenza IIV4 (Quadrivalent ) 0.5mL (27592) 04/02/2013 Td 03/16/1997,02/06/1974 Tdap 09/08/2008 Varicella 07/10/1999(Deferred: [...] AM CDT Pulse 74 07/08/2023 11:07 AM CHASSIS ENGINEER Temperature 36.1 C (97 F) 07/23/2017 11:30 AM CHASSIS ENGINEER Respiratory Rate 20 07/23/2017 11:45 AM CHASSIS ENGINEER Oxygen Saturation 99% 07/23/2017 11:45 AM CHASSIS ENGINEER Inhaled Oxygen Concentration - - Weight 75.3 kg (166 lb) 09/23/2017 3:07 PM CDT Height 167.6 cm (5' 6) 09/23/2017 3:07 PM CDT Body Mass Index 26.79 09/23/2017 3:07 PM CDT Plan of Treatment Health Maintenance Due Date Last Done Comments Hep C Screening (Preventive Services) 1955 HepA (2 of 2 - Risk [...] 2024 04/30/2016, 03/10, 04/24/2011, Additional history exists RSV (1 - 1-dose 75+ series) 02/11/2031 HepB Completed 07/04/1999, 12/08, 11/27/1998 Dexa Completed 09/23/2017 Hib Aged Out No longer eligi ble based on patient's age to complete this topic IPV ([place]) Aged Out No longer eligi ble based on patient's age to complete this topic MCV4 Aged Out No longer eligi ble based on patient's age to complete this topic Medical Devices Implanted Type Area Conservation Agent Device Identifier Shelf Expiration Date Model / Serial / Lot Plt Dvr [facility]atomic [facility] [id number] Implanted:Qty: 1 on 07/23/2017 by Pablo Siegel MD at [facility] Right: [employer] - Trauma [id number] / 0 / 0 Scr Rafael 3.5x12 [id number] - [id number] Implanted:Qty: 1 on 07/23/2017 by Pablo Siegel MD at [facility] Right: [employer] - Trauma [id number] / 0 / 0 Scr Rafael 3.5x12 [id number] - [id number] Implanted:Qty: 1 on 07/23/2017 by Pablo Siegel MD at [facility] Right: [employer] - Trauma [id number] / 0 / 0 Peg Smooth 2.0x20 - [id number] Implanted:Qty: 1 on 07/23/2017 by Pablo Siegel MD at [facility] [employer] Right: [employer] - Trauma [id number] / 0 / 0 Peg Smooth 2.0x18 - [id number] Implanted:Qty: 1 on 07/23/2017 by Pablo Siegel MD at [facility] Right: [employer] - Trauma [id number] / 0 / 0 Peg Smooth 2.0x20 - [id number] Implanted:Qty: 1 on 07/23/2017 by Pablo Siegel MD at [facility] [employer] Right: [employer] - Trauma [id number] / 0 / 0 Peg Smooth 2.0x20 - [id number] Implanted:Qty: 1 on 07/23/2017 by Pablo Siegel MD at [facility] [employer] Right: [employer] - Trauma [id number] / 0 / 0 Peg Smooth 2.0x18 - [id number] Implanted:Qty: 1 on 07/23/2017 by Pablo Siegel MD at [facility] [employer] Right: [employer] - Trauma [id number] / 0 / 0 Peg Smooth 2.0x20 - [id number] Implanted:Qty: 1 on 07/23/2017 by Pablo Siegel MD at [facility] Right: [employer] - Trauma [id number] / 0 / 0 Scr Rafael 3.5x12 [id number] - [id number] Implanted:Qty: 1 on 07/23/2017 by Pablo Siegel MD at [facility] [employer] Right: [employer] - Trauma [id number] / 0 / 0 Procedures Procedure Name Priority Date/Time Associated Diagnosis Comments DXA BONE DENSITY SPINE/HIP Routine 09/23/2017 2:52 PM CDT Status post musculoskeletal system surgery Postop check COLONOSCOPY Routine 05/19/2013 11:21 AM CHASSIS ENGINEER Screen for colon cancer LIPID PANEL & [...] PM CDT CLINIC DXA REPORT Patient Name: Amelia Selam Dc [place]: Ksenia Foster MD Densitometer: [employer] A (S/N [id number]) [facility] BONE5 OSTEOPOROSIS RISK FACTORS FROM PATIENT QUESTIONNAIRE: The patient is a 62 y.o.female: Estrogen [...] questionnaire and the FRAX score, if available. See different fracture risk categories below under definitions. ASSESSMENT: Moderate low bone density based on lowest T score which is at the lumbar spine. Fragility fracture risk is mildly increased. . RECOMMENDATIONS: 1. Optimize daily intake of calcium and vitamin D. 2. Consider repeating a bone density in 3 years Definitions (T-Score = Standard deviations above/below mean peak adult) (Z-Score = Standard deviations above/below mean age/sex-matched peers) ISCD Standards: For a more accurate fracture risk assessment, reference data is used for all ethnic groups and the 1/3 region is reported for the forearm. WHO DEFINITIONS: Normal BMD: T-score ? -1.0 Osteopenia: T-score between -1.0 and -2.5 Osteoporosis: T-score ? -2.5 FRAX Score : The FRAX algorithms give the 10-year probability of fracture. The output is a 10-year probability of hip fracture and the 10-year probability of a major osteoporotic fracture (clinical spine, forearm, hip or shoulder fracture). The FRAX score takes into account the bone density, but also age, gender, weight, height, previous fracture, parental hip fracture, smoking status, glucocorticoid intake, history of RA, secondary osteoporosis, and high alcohol intake in determining fracture risk in patients with osteopenia and osteoporosis. FRAX and Fracture Risk Categories in terms of major osteoporotic fracture risk (clinical spine, forearm, hip, or shoulder): < 10% = low fracture risk ? 10% and <15% = mildly increased fracture risk ? 15% and <20% = moderately increased fracture risk ? 20% and <30% = high fracture risk ? 30% = very high fracture risk A clinician may consider FDA-approved medical therapies in postmenopausal women and men aged 50 years and older, if one or more of the following is present (clinical correlation required and therapy may not always be indicated): 1. The patient has a hip or vertebral (clinical or morphometric) fracture. 2. T-score ? -2.5 at the femoral neck, hip, or spine after appropriate evaluation to exclude secondary causes. 3. Low bone mass (T-score between -1.0 and -2.5 at the femoral neck, hip or spine) and a 10-year probability of a hip fracture ? 3% or a 10-year probability of a major osteoporosis-related fracture ? 20% based on the FRAX scores. 4. Clinicians judgment and/or patient preferences may result in a decision to patients with 10-year fracture probabilities above or below these levels. Pablo Siegel MD RAD DEXA * COLONOSCOPY [[id number]] (05/19/2013 11:21 AM CHASSIS ENGINEER) 05/19/2013 11:2 1 AM CHASSIS ENGINEER Narrative GI ([facility]) - 05/19/2013 12:25 PM CHASSIS ENGINEER Indications: Screening for colorectal malignant neoplasm Providers: [...] of the bowel preparation was fair. Findings: A sessile polyp was found in [...] next colonoscopy. Procedure Code(s): --- Professional --- 67544, Colonoscopy, flexible, proximal to splenic flexure; with biopsy, single or multiple Diagnosis Code(s): --- Professional --- V76.51, Special screening for malignant neoplasms of colon 569.0, Anal and rectal polyp 455.0, Internal hemorrhoids without mention of complication CPT (R) 2012 [employer]. All Rights Reserved. The codes documented in this report are preliminary and upon ordnance artificer helper review may be revised to meet current [...] next colonoscopy. Procedure Code(s): --- Professional --- 78699, Colonoscopy, flexible, proximal to splenic flexure; with biopsy, single or multiple Diagnosis Code(s): --- Professional --- V76.51, Special screening for malignant neoplasms of colon 569.0, Anal and rectal polyp 455.0, Internal hemorrhoids without mention of complication CPT (R) 2012 [employer]. All Rights Reserved. The codes documented in this report are preliminary and upon ordnance artificer helper review may be revised to meet current compliance requirements. Attending Participation: Janusz Cortes MD 05/19/2013 12:24 PM This report has been signed electronically. Number of Addenda: 0 Note Initiated On: 05/19/2013 11:21 AM Janusz Cortes MD DIGESTIVE CARE GI ([facility]) [facility], [place] * LIPID PANEL AND DIRECT LDL(IF NEEDED) (04/06/2013 8:15 AM CDT) Hours Fasting 12 hours [facility] Cholesterol 194 0 - 199 mg/dl [facility] Triglyceride 63 0 - 149 mg/dl [facility] HDL 57 >40 mg/dl [facility] LDL, Calc. 124 0 - 129 mg/dl [facility] Non HDL Chol, Calc 137 mg/dl [facility] 04/06/2013 8:1 5 AM CDT 04/06/2013 8:22 AM CDT Narrative [facility] - 04/06/2013 1:03 PM CDT Performed at [facility], [address] [place] [address] Umu Neal MD LAB_1 Performing Organization Address City/[facility] Co de Phone Number [facility] [phone] * MAMMOGRAM SCREENING BILATERAL (04/02/2013 11:02 AM [...] evaluated with the assistance of Computer-Aided Detection. Repeat routine screening mammogram in one year is [...] BI-RADS Category 1: Negative Toni Natarajan MD RAD DEIDRE from Last 3 Months or Most Recently Relevant to Health Maintenance Care Teams Veterinary Receptionist Relationship Specialty Start Date End Date Toni Natarajan MD [address] [place] [address] [place] [address] PCP - General 01/30/10
--- OUTSIDE RECORDS SUMMARY | 2024-06-10 10:34 | XMS_ITS | Encounter Summary ---
Author Organization [facility] Address [address], [place] [address] Care Team Providers Care Foster Parent Name Role Phone Toni Natarajan MD Primary Care Provider [phone]- [phone] Encounter Details Date Type Department Care Team (Latest Contact Info) Description 03/17/1997 Orders Only Dunia Greenberg MD Social History Tobacco Use Types Packs/Day Years Used Date Smoking Tobacco: Never Assessed Sex and Gender Information Value Date Recorded Sex Assigned at Not on file Gender Identity Not on file Sexual Orientation Not on file documented as of this encounter Plan of Treatment Not on file documented as of this encounter Visit Diagnoses Not on filedocumented in this encounter Care Teams Foster Parent Relationship Specialty Start Date End Date Toni Natarajan MD [address] [place] [address] PCP - General 01/30/10 documented as of this encounter
--- OUTSIDE RECORDS SUMMARY | 2024-06-10 10:35 | XMS_ITS | Encounter Summary ---
Author Organization [facility] Address [address], [place] [address] Care Team Providers Care Operating Room Orderly Name Role Phone Toni Natarajan MD Primary Care Provider [phone]- [phone] Encounter Details Date Type Department Care Team [...] on filedocumented in this encounter Care Teams Operating Room Orderly Relationship Specialty Start Date End Date Toni Natarajan MD [address] [place] [address] PCP - General 01/30/10 documented as of this encounter
== END 2024-07-30 08:05 | disposition home or self-care (01) ==
PROVIDERS: PCP Family Medicine; Visit Provider Physician Assistant Surgical
DX: Z98.890 Other specified postprocedural states (principal); M25.632 Stiffness of left wrist, not elsewhere classified; R53.1 Weakness; Z51.89 Encounter for other specified aftercare
CPT/HCPCS: 77080; 97110; 97140; 97165; 97530; X5282